=== PATIENT | male | born 1990 ===

== ENCOUNTER 2023-04-14 21:30 | Inpatient (IN) ==
[2023-04-15] MEDS ORDERED: Al Hydrox/Mg Hydrox/Simet LIQ 30 ML UDC PO PRN (00:52)
[2023-04-15 01:13] LABS: ABS Basophils 0.1 10^3/uL (0.0-0.1); ABS Eosinophils 0.3 10^3/uL (0.0-0.5); ABS Lymphocytes 3.1 10^3/uL (1.0-4.8); ABS Nucleated RBC 0.01 10^3/ul; Eosinophil % 2.5 %; Hematocrit 49.1 % (38-53); Hemoglobin 17.1 g/dL (13.2-16.3); Lymphocyte % 29.8 %; Mean Corpuscular Hemoglobin 31.6 pg (27-33); Mean Corpuscular Hgb Conc 34.7 g/dL (31-36); Nucleated Red Blood Cells % 0.1 /100 WBC (0.0-0.4); Platelet Count 283 10^3/uL (150-450); Red Cell Distribution Width 13.9 % (12-17); White Blood Count 10.5 10^3/uL (3.6-10.2)
[2023-04-15 01:15] LABS: Urine Appearance Clear; Urine Bilirubin Negative (Negative); Urine Blood Negative (Negative); Urine Color Amber; Urine Glucose Negative (Negative); Urine Ketones 1+ (Negative); Urine Nitrite Negative (Negative); Urine Protein 1+(30 mg/dL) (Negative); Urine Specific Gravity 1.028 (1.002-1.030); Urine Urobilinogen Negative (Negative)
[2023-04-15 01:22] LABS: Urine Bacteria Absent (Absent); Urine Red Blood Cell 2+(6-10/hpf) (Absent); Urine White Blood Cell Trace(0-5/hpf) (Absent)
[2023-04-15 01:29] LABS: ALT 22 U/L (7-52); AST 35 U/L (13-39); Albumin 4.6 g/dL (3.2-5.2); Albumin/Globulin Ratio 1.2 (1-3); Alkaline Phosphatase 53 U/L (35-149); Anion Gap 12 mmol/L (2-16); Blood Urea Nitrogen 15 mg/dL (6-24); CO2 Carbon Dioxide 26 mmol/L (22-32); Calcium 9.9 mg/dL (8.6-10.3); Chloride 101 mmol/L (101-111); Creatinine, Serum 1.27 mg/dL (0.67-1.17); Glucose 98 mg/dL (70-100); Potassium 3.4 mmol/L (3.5-5.0); Sodium 139 mmol/L (135-145); Total Protein 8.6 g/dL (6.4-8.9)
[2023-04-15 01:36] LABS: Acetaminophen < 15 mcg/mL; Alcohol, S < 13 mg/dL (<13); Salicylate < 2.50 mg/dL (<30); Urine Benzodiazepine Screen None Detected (None Detect); Urine Cannabinoids Screen None Detected (None Detect); Urine Opiates Screen None Detected (None Detect)
[2023-04-15 01:51] LABS: TSH Ultra Thyroid Stim Horm 2.13 mcIU/mL (0.34-5.60)
[2023-04-15] MEDS: Vitamin THERAPEUTIC TAB PO SCH (13:06)
[2023-04-15] MEDS: ELVITEG COB EMTRI TENOF ALAFEN PO SCH (20:54)
[2023-04-15] MEDS: OLANZapine 5 mg TAB *ODT PO SCH (20:55)
[2023-04-15] MEDS ORDERED: OLANZapine 10 mg TAB*ODT PO SCH (21:00)
[2023-04-16] MEDS: Vitamin THERAPEUTIC TAB PO SCH (09:49)
[2023-04-16] MEDS: ELVITEG COB EMTRI TENOF ALAFEN PO SCH ×2 (09:49→14:54)
[2023-04-16] MEDS: OLANZapine 5 mg TAB *ODT PO SCH (20:19)
[2023-04-17] MEDS: ELVITEG COB EMTRI TENOF ALAFEN PO SCH (11:24)
[2023-04-17] MEDS: Vitamin THERAPEUTIC TAB PO SCH (11:24)
[2023-04-17] MEDS: OLANZapine 5 mg TAB *ODT PO SCH (20:43)
[2023-04-18] MEDS: ELVITEG COB EMTRI TENOF ALAFEN PO SCH ×2 (10:01→19:45)
[2023-04-18] MEDS: Vitamin THERAPEUTIC TAB PO SCH (10:01)
[2023-04-19] MEDS: Vitamin THERAPEUTIC TAB PO SCH (08:25)
[2023-04-19] MEDS: ELVITEG COB EMTRI TENOF ALAFEN PO SCH (08:25)
[2023-04-19 08:28] LABS: HDL Cholesterol 42.5 mg/dL
[2023-04-19 08:35] VITALS: BP 99/68
== END 2023-04-19 14:46 | disposition home or self-care (01) | DRG 897 ==
LOC: EDBD → ED 21:30 → EDHOLD 04-15 00:39 → BSU 04-15 02:13
PROVIDERS: ADMIT Psychiatry & Neurology Psychiatry; ATTEND Psychiatry & Neurology Psychiatry